=== PATIENT | female | born 1975 | race Caucasian/White ===

== ENCOUNTER 2022-12-22 14:13 | Emergency (ER) | payer MEDICAID ==
[~2022-12-22] VITALS: Ht 160 cm; Wt 90.0 kg
[2022-12-22 14:25] VITALS: BP 132/68
[2022-12-22 15:23] LABS: APPEARANCE,URINE CLEAR (CLEAR); BILIRUBIN,URINE NEGATIVE (NEGATIVE); BLOOD, URINE 3+ (NEGATIVE); COLOR,URINE YELLOW (YELLOW); LEUKOCYTE ESTERASE ,URINE NEGATIVE (NEGATIVE); NITRITE, URINE NEGATIVE (NEGATIVE); UGLUCOSE NEGATIVE (NEGATIVE)
[2022-12-22 15:38] LABS: BASOPHILS % (AUTO) 0.3 % (0.0-2.0); EOSINOPHILS # (AUTO) 0.2 K/uL (0-0.4); EOSINOPHILS % (AUTO) 1.8 % (0.0-4.0); HEMATOCRIT 28.1 % (36-48); HEMOGLOBIN 8.9 g/dL (12.0-16.0); LYMPHOCYTES # (AUTO) 1.6 K/uL (2.5-16.5); LYMPHOCYTES % (AUTO) 17.7 % (20.5-51.1); MEAN CORPUSCULAR HEMOGLOBIN 21 pg (27-31); MEAN CORPUSCULAR HGB CONC 32 g/dL (33-37); MEAN CORPUSCULAR VOLUME 66.4 fL (80-94); MONOCYTES # (AUTO) 0.4 K/uL (0.8-1.0); MONOCYTES % (AUTO) 4.1 % (1.7-9.3); NEUTROPHILS # (AUTO) 6.8 K/uL (1.8-7.7); NEUTROPHILS % (AUTO) 76.1 % (42.2-75.2); PLATELET COUNT (AUTO) 266 K/uL (140-450); RED BLOOD CELL COUNT(AUTO) 4.23 MIL/uL (4.20-5.40); RED CELL DISTRIBUTION WIDTH 16.8 % (11.6-13.7); WHITE BLOOD COUNT (AUTO) 8.9 K/uL (4.8-10.8)
[2022-12-22 15:41] LABS: RBC,URINE TOO NUMEROUS TO COUN /HPF (0-5)
[2022-12-22 15:43] LABS: WBC,URINE NONE SEEN /HPF (0-5)
[2022-12-22 15:52] LABS: ANION GAP 12.2 (8-16); CARBON DIOXIDE 26.7 mmol/L (21-32); CREATININE 0.7 mg/dL (0.6-1.3); POTASSIUM 3.9 mmol/L (3.5-5.1)
[2022-12-22] MEDS ORDERED: FERR-212 PO (16:41)
[2022-12-22] MEDS ORDERED: MEDR10TA PO (16:41)
[2022-12-22] MEDS ORDERED: IBUP-2213 PO (16:41)
[2022-12-22 17:00] VITALS: BP 132/68
--- NOTE | 2022-12-22 17:00 | NUR ---
Patient discharged with v/s stable. Written and verbal after care instructions given and explained. Patient alert, oriented and verbalized understanding of instructions. Ambulatory with steady gait. All questions addressed prior to discharge. ID band removed. Patient advised to follow up with PMD. Rx of FERROUS SULFATE, IBUPROFEN, PROVERA (SENT) given. Patient educated on indication of medication including possible reaction and side effects. Opportunity to ask questions provided and answered. WORK NOTE GIVEN
== END 2022-12-22 17:00 | disposition home or self-care (01) ==
LOC: MED 14:13
DX: N93.8 Other specified abnormal uterine and vaginal bleeding (principal); D64.9 Anemia, unspecified; Z79.899 Other long term (current) drug therapy; Z79.1 Long term (current) use of non-steroidal anti-inflammatories (NSAID)
CPT/HCPCS: 36415; 80048; 81001; 81025; 85025; 99283